=== PATIENT | female | born 1985 | race Caucasian/White ===

== ENCOUNTER 2016-05-03 20:12 | Emergency (ER) | payer MEDICAID ==
[~2016-05-03] VITALS: Ht 162.6 cm; Wt 101.0 kg
[~2016-05-03 20:12] MED LIST: ACYC200C2 PO; CALC600T11 PO; FERR325C PO; PRENAT PO
[2016-05-03 20:36] VITALS: Ht 162.6 cm; Wt 101.0 kg
[2016-05-03] MEDS ORDERED: FAMO-18 PO (21:18)
[2016-05-03] MEDS ORDERED: BEN50 PO (21:18)
[2016-05-03] MEDS ORDERED: PRED50TA PO (21:18)
--- NOTE | 2016-05-03 21:22 | ERD ---
ER Documentation Chief Complaint Date/Time DATE: 05/03/16 TIME: 21:20 Chief Complaint hives all over the body HPI 30-year-old female presents here in emergency department for complaints of rash all over the body and itching started today. Patient cannot remember eating something or different. Patient denies any shortness of breath or wheezing. Patient denies any lip swelling, tongue swelling or stridor. Patient did not take any medications up and symptoms. Patient does not have any family members with the same type of symptoms. ROS All systems reviewed and are negative except as per history of present illness. Medications Home Meds Active Scripts Prednisone* (Prednisone*) 50 Mg Tablet, 50 MG PO DAILY, #5 TAB Prov:MARKO HUGHES ACTING TEACHER 05/03/16 Famotidine* (Pepcid*) 20 Mg Tablet, 20 MG PO BID, #20 TAB Prov:MARKO HUGHES ACTING TEACHER 05/03/16 Diphenhydramine Hcl* (Benadryl*) 50 Mg Cap, 50 MG PO Q6H Y for ITCHING/RASH, # 30 CAP Prov:MARKO HUGHES ACTING TEACHER 05/03/16 Acyclovir* (Acyclovir*) 200 Mg Capsule, 200 MG PO 5 TIMES DAILY for 7 Days, CAP Prov:NICHOLAS CARMONA PA-C 04/08/16 Reported Medications Calcium Carbonate* (Calcium Carbonate*) 600 MG Ca Tab, 600 MG PO DAILY, TAB 02/11/16 Ferrous Sulfate (Iron) 325 Mg Capsule.er, 325 MG PO DAILY, CAP 02/11/16 Multivit/Min/Fol Ac/Iron/Pren* ( S*) 1 Tab Tab, 1 TAB PO DAILY, TAB 12/20/15 Allergies Allergies: Coded Allergies: No Known Allergy (Unverified , 03/26/16) PMhx/Soc History of Surgery: Yes (Cholecystectomy(2014),(03/20/16)) Anesthesia Reaction: No Hx Neurological Disorder: No Hx Respiratory Disorders: No Hx Cardiac Disorders: No Hx Psychiatric Problems: No Hx Miscellaneous Medical Probl: Yes (Gallstones) Hx Alcohol Use: No Hx Substance Use: No Hx Tobacco Use: No FmHx Family History: No coronary disease, No diabetes, No other Physical Exam Vitals Vital Signs Date Time Temp Pulse Resp B/P Pulse Ox O2 Delivery O2 Flow Rate FiO2 05/03/16 20:36 97.9 95 20 104/67 98 Physical Exam GENERAL: The patient is well developed and appropriate for usual state of health, in no apparent distress. CHEST: Clear to auscultation bilaterally. There are no rales, wheezes or rhonchi. HEART: Regular rate and rhythm. No murmurs, clicks, rubs or gallops. No S3 or S4. ABDOMEN: Soft, nontender and nondistended. Good bowel sounds. No rebound or guarding. No gross peritonitis. No gross organomegaly or masses. No Connolly sign or McBurney point tenderness. BACK: No midline or flank tenderness. EXTREMITIES: Equal pulses bilaterally. There is no peripheral clubbing, cyanosis or edema. No focal swelling or erythema. Full range of motion. Grossly neurovascularly intact. NEURO: Alert and oriented. Cranial nerves 2-12 intact. Motor strength in all 4 extremities with 5/5 strength. Sensation grossly intact. Normal speech and gait. SKIN: Maculopapular rash noted all over the body. There is no apparent ecchymosis or petechia. The skin is warm and dry. HEMATOLOGIC AND LYMPHATIC: There is no evidence of excessive bruising or lymphedema. No gross cervical, axillary, or inguinal lymphadenopathy. Results 24 hrs Current Medications Medications (Trade) Dose Ordered Sig/Hai Route PRN Reason Start Time Stop Time Status Last Admin Dose Admin Diphenhydramine HCl (Benadryl) 50 mg ONCE ONCE IM 05/03/16 21:30 05/03/16 21:31 Methylprednisolone Sodium Succinate (Solu-Medrol) 125 mg ONCE ONCE IM 05/03/16 21:30 05/03/16 21:31 Benadryl and Solu-Medrol was given here in emergency department, verbalized feeling much better, rash improved afterwards. Procedures/MDM Medical decision making: Patient's symptoms most likely consistent with urticaria, allergic reaction, most likely from something patient ate or inhaled. No symptoms of angioedema. No symptoms of anaphylactic shock. No symptoms of stridor. No oral airway restriction noted. No symptoms of any coagulopathies. No symptoms of any sepsis at this time. Patient appears well seemed in a stable. Patient was given for Benadryl, prednisone, Pepcid, patient is advised to follow with primary doctor in 2 days, avoid common allergens, patient was advised to follow with primary care doctor in 2 days, return to emergency department for any worsening symptoms. Departure Diagnosis: Primary Impression: Acute urticaria Condition: Stable Patient Instructions: MARKO Fischer NP May 03, 2016 21:22
[2016-05-03] MEDS ORDERED: METHYLPREDNISOLONE 125 MG INJ IM ONE (21:30)
[2016-05-03] MEDS ORDERED: DIPHENHYDRAMINE 50 MG INJ IM ONE (21:30)
[2016-05-03 21:54] VITALS: BP 108/62; PULSE 88; RESP 16; TEMP 98.3
== END 2016-05-03 21:55 | disposition home or self-care (01) ==
LOC: FTE 20:12
DX: L50.9 Urticaria, unspecified (principal)
CPT/HCPCS: J1200; J2930; 96372

== ENCOUNTER 2016-05-14 13:44 | Emergency (ER) | payer MEDICAID ==
[~2016-05-14] VITALS: Ht 172.7 cm; Wt 104.0 kg
[~2016-05-14 13:44] MED LIST changes: +BEN50 PO; +FAMO-18 PO; +PRED50TA PO
[2016-05-14 13:54] VITALS: Ht 172.7 cm; Wt 104.0 kg
[2016-05-14] MEDS ORDERED: LABE200T25 PO (16:44)
--- NOTE | 2016-05-14 17:56 | ERD ---
ER Documentation Chief Complaint Date/Time DATE: 05/14/16 TIME: 17:54 Chief Complaint pt with 1 month old baby with c/o chest congestion, cough HPI This is a 30-year-old female with no past medical history other than hypertension that presents to the emergency department complaining of a 48 hour history of a nonproductive cough, rhinorrhea, sneezing and generalized myalgias. She also indicates that she has been having a sore throat but denies any dysphagia or odynophagia. She has had no fevers or shaking or chills. She indicates her 1-month-old baby has had similar symptoms. She denies any frequency urgency or dysuria. She denies a headache or neck pain. She has had no rashes. She denies any abdominal pain. She denies any recent travel and no shortness of breath at rest or exertion ROS All systems reviewed and are negative except as per history of present illness. Medications Home Meds Reported Medications Labetalol Hcl* (Labetalol Hcl*) 200 Mg Tablet, 200 MG PO BID, TAB 05/14/16 Discontinued Reported Medications Calcium Carbonate* (Calcium Carbonate*) 600 MG Ca Tab, 600 MG PO DAILY, TAB 02/11/16 Ferrous Sulfate (Iron) 325 Mg Capsule.er, 325 MG PO DAILY, CAP 02/11/16 Multivit/Min/Fol Ac/Iron/Pren* ( S*) 1 Tab Tab, 1 TAB PO DAILY, TAB 12/20/15 Discontinued Scripts Prednisone* (Prednisone*) 50 Mg Tablet, 50 MG PO DAILY, #5 TAB Prov:MARKO HUGHES DIE STORAGE CLERK 05/03/16 Famotidine* (Pepcid*) 20 Mg Tablet, 20 MG PO BID, #20 TAB Prov:MARKO HUGHES DIE STORAGE CLERK 05/03/16 Diphenhydramine Hcl* (Benadryl*) 50 Mg Cap, 50 MG PO Q6H Y for ITCHING/RASH, # 30 CAP Prov:MARKO HUGHES DIE STORAGE CLERK 05/03/16 Acyclovir* (Acyclovir*) 200 Mg Capsule, 200 MG PO 5 TIMES DAILY for 7 Days, CAP Prov:NICHOLAS CARMONA PA-C 04/08/16 Allergies Allergies: Coded Allergies: No Known Allergy (Unverified , 05/14/16) PMhx/Soc History of Surgery: Yes (Cholecystectomy(2015),(03/20/16)) Anesthesia Reaction: No Hx Neurological Disorder: No Hx Respiratory Disorders: No Hx Cardiac Disorders: No Hx Psychiatric Problems: No Hx Miscellaneous Medical Probl: Yes (Gallstones) Hx Alcohol Use: No Hx Substance Use: No Hx Tobacco Use: No Smoking Status: Never smoker Physical Exam Vitals Vital Signs Date Time Temp Pulse Resp B/P Pulse Ox O2 Delivery O2 Flow Rate FiO2 05/14/16 16:08 98.3 74 18 110/62 98 Room Air 05/14/16 13:54 98.3 74 18 110/62 98 Physical Exam Constitutional:Well-developed. Well-nourished. HEENT:Normocephalic. Atraumatic.Pupils were equal round reactive to light. Moist mucous membranes.No tonsillar exudates. Mild erythema of the tonsils with uvula midline. Neck: No nuchal rigidity. No lymphadenopathy. No posterior cervical spine tenderness or step-offs. Respiratory: Not using accessory muscles of respiration.Lungs were clear to auscultation bilaterally. No rhonchi. No rales. No wheezing. Cardiovascular: Regular rate regular rhythm.No murmurs. No rubs were appreciated.S1, S2 normal. Distal pulses are palpable 2+ bilaterally. GI: Abdomen was soft. Nontender. Non Distended. No pulsatile abdominal masses or bruits. No rebound. No guarding. Bowel sounds were present and normal. Muscle skeletal: Full range of motion of both the upper and lower extremities bilaterally.Normal muscle tone.No assymetrical calf tenderness or swelling. Skin: No petechia, no purpura. No lesions on the palms or the soles of the feet. No maculopapular rash. NEURO: Patient was alert, awake, orientated x3.No facial droop. Gait observed and normal with no ataxia.Speech had regular rate and rhythm. No focal neurological deficits. Procedures/MDM This patient presented to the emergency department with flulike symptoms. Her 1 -month-old child had tested positive for influenza A. The patient's influenza swab was negative however given her symptoms and sick contacts she will be sent home with a prescription of Tamiflu. The patient was afebrile nontoxic in appearance and therefore did not feel is necessary to obtain any ancillary laboratory work or radiographic imaging. The patient was discharged home in fair condition. They were instructed to return to the emergency department at any time if there was any worsening of their condition. The patient stated they would follow up with their PCP in the next 24-48 hours to initiate a suitable medication regimen under the care of their PCP as well as to allow their PCP to monitor any drug reactions. The patient was discharged home with prescriptions after they gave informed consent to the new medication. They were also fully informed by myself on the adverse effects and adverse drug interactions in order to provide adequate safeguards to prevent possible adverse reactions to medications. Departure Diagnosis: Primary Impression: Flu-like symptoms Condition: Serious SHOLA ARROYO May 14, 2016 17:56
[2016-05-14] MEDS ORDERED: OSLT75C PO (17:57)
[2016-05-14] MEDS ORDERED: IBUP800T25 PO (17:57)
[2016-05-14 18:34] VITALS: BP 113/69; PULSE 79; RESP 18; TEMP 98.6
== END 2016-05-14 18:36 | disposition home or self-care (01) ==
LOC: E/R 13:44
DX: R05 Cough (principal); J34.89 Other specified disorders of nose and nasal sinuses; R06.7 Sneezing; M79.1 Myalgia; J02.9 Acute pharyngitis, unspecified; I10 Essential (primary) hypertension
CPT/HCPCS: 87400; Z7502; 99283

== ENCOUNTER 2016-05-17 11:00 | Emergency (ER) | payer MEDICAID ==
[~2016-05-17] VITALS: Wt 100.0 kg
[~2016-05-17 11:00] MED LIST changes: -ACYC200C2 PO; -BEN50 PO; -CALC600T11 PO; -FAMO-18 PO; -FERR325C PO; +IBUP800T25 PO; +LABE200T25 PO; +OSLT75C PO; -PRED50TA PO; -PRENAT PO
--- NOTE | 2016-05-17 13:37 | RADRPT ---
PROCEDURE: US Pelvis CLINICAL INDICATION: Vaginal bleeding TECHNIQUE: Multiple sonographic images of the pelvis were obtained utilizing a transabdominal and endovaginal technique. The images were reviewed on a PACS workstation. COMPARISON: No central ultrasound from 03/16/2016 FINDINGS: The uterus measures 9.0 x 5.1 x 6.7 cm. The endometrial echo complex measures 16 mm in thickness. No discrete lesion is seen. The right ovary measures 3.7 x 1.8 x 2.3 cm. The left ovary measures 3.5 x 1.9 x 2.4 cm. There is no rmal vascular flow in both ovaries. No significant ovarian lesions are seen. There is trace pelvic free fluid. IMPRESSION: Prominence of the endometrium is likely due to stage of the menstrual cycle. Correlation with beta H CG level is recommended to evaluate for . No focally increased heterogeneity in the endome trium to suggest retained products of conception. Otherwise, unremarkable pelvic ultrasound. RPTAT: EE Physician Nallely Date Time Electronically viewed and signed by Physician Nallely on 05/17/2016 13:36 /
[2016-05-17 14:34] LABS: BASOPHILS % 0.4 % (0.0-2.0); EOSINOPHILS # 0.1 10^3/ul (0.0-0.5); HEMATOCRIT 35.4 % (37.0-47.0); HEMOGLOBIN 11.5 g/dl (12.0-16.0); LYMPHOCYTES # 1.7 10^3/ul (0.8-2.9); LYMPHOCYTES % 35.3 % (15.0-51.0); MEAN CORPUSCULAR HEMOGLOBIN 25.9 pg (29.0-33.0); MEAN CORPUSCULAR HGB CONC 32.6 g/dl (32.0-37.0); MEAN CORPUSCULAR VOLUME 79.5 fl (82.0-101.0); MEAN PLATELET VOLUME 8.7 fl (7.4-10.4); MONOCYTE # 0.6 10^3/ul (0.3-0.9); MONOCYTES % 11.2 % (0.0-11.0); NEUTROPHIL # 2.5 10^3/ul (1.6-7.5); NEUTROPHILS % 51.1 % (39.0-77.0); PLATELET COUNT 293 10^3/UL (140-440); RED BLOOD COUNT 4.45 10^6/ul (4.20-5.40); RED CELL DISTRIBUTION WIDTH 17.2 % (11.5-14.5); UNCORRECTED WBC 4.9 10^3/ul (4.8-10.8); WHITE BLOOD COUNT 4.9 10^3/ul (4.8-10.8)
[2016-05-17 14:37] LABS: CONDITION 1; LH ANALYZER COMMENTS 1
[2016-05-17] MEDS ORDERED: FER325 PO (14:42)
--- NOTE | 2016-05-17 14:44 | ERD ---
ER Documentation Chief Complaint Date/Time DATE: 05/17/16 TIME: 14:42 Chief Complaint vag bleeding for 2 days. no dysuria . no dizziness. HPI This 22-year-old female presents with vaginal bleeding for last 2 days. She is approximately 5 pads. History is significant for recent approximately 6 weeks ago. She has not had any menstrual bleeding since that time. She stopped breast-feeding approximately 2 weeks ago. Patient denies any pain, fevers, vomiting, urinary complaints. Patient denies as her is out of town. ROS All systems reviewed and are negative except as per history of present illness. Medications Home Meds Active Scripts Ferrous Sulfate* (Ferrous Sulfate*) 325 Mg Tabec, 325 MG PO BID, #60 TAB Prov:GARLAND PRYOR MD 05/17/16 Ibuprofen* (Motrin*) 800 Mg Tab, 800 MG PO Q6H Y for PAIN AND OR ELEVATED TEMP, #30 TAB Prov:SHOLA ARROYO 05/14/16 Oseltamivir Phosphate* (Tamiflu*) 75 Mg Capsule, 75 MG PO BID for 5 Days, CAP Prov:SHOLA ARROYO 05/14/16 Reported Medications Labetalol Hcl* (Labetalol Hcl*) 200 Mg Tablet, 200 MG PO BID, TAB 05/14/16 Discontinued Reported Medications Calcium Carbonate* (Calcium Carbonate*) 600 MG Ca Tab, 600 MG PO DAILY, TAB 02/11/16 Ferrous Sulfate (Iron) 325 Mg Capsule.er, 325 MG PO DAILY, CAP 02/11/16 Multivit/Min/Fol Ac/Iron/Pren* ( S*) 1 Tab Tab, 1 TAB PO DAILY, TAB 12/20/15 Discontinued Scripts Prednisone* (Prednisone*) 50 Mg Tablet, 50 MG PO DAILY, #5 TAB Prov:MARKO HUGHES ASSEMBLY LINE LEADER 05/03/16 Famotidine* (Pepcid*) 20 Mg Tablet, 20 MG PO BID, #20 TAB Prov:MARKO HUGHES ASSEMBLY LINE LEADER 05/03/16 Diphenhydramine Hcl* (Benadryl*) 50 Mg Cap, 50 MG PO Q6H Y for ITCHING/RASH, # 30 CAP Prov:MARKO HUGHES ASSEMBLY LINE LEADER 05/03/16 Acyclovir* (Acyclovir*) 200 Mg Capsule, 200 MG PO 5 TIMES DAILY for 7 Days, CAP Prov:NICHOLAS CARMONA PA-C 04/08/16 Allergies Allergies: Coded Allergies: No Known Allergy (Unverified , 05/14/16) PMhx/Soc History of Surgery: Yes (Cholecystectomy(2014),(03/20/16)) Anesthesia Reaction: No Hx Neurological Disorder: No Hx Respiratory Disorders: No Hx Cardiac Disorders: No Hx Psychiatric Problems: No Hx Miscellaneous Medical Probl: Yes (Gallstones) Hx Alcohol Use: No Hx Substance Use: No Hx Tobacco Use: No Physical Exam Vitals Vital Signs Date Time Temp Pulse Resp B/P Pulse Ox O2 Delivery O2 Flow Rate FiO2 05/17/16 11:04 98.7 93 21 113/78 98 Physical Exam Const: [] Alert, [id number] per Head: Atraumatic Eyes: Normal Conjunctiva ENT: Normal External Ears, Nose and Mouth. Neck: Full range of motion..~ No meningismus. Resp: Clear to auscultation bilaterally Cardio: Regular rate and rhythm, no murmurs Abd: Soft, non tender, non distended. Normal bowel sounds Skin: No petechiae or rashes Back: No midline or flank tenderness Ext: No cyanosis, or edema Neur: Awake and alert Psych: Normal Mood and Affect Result Diagram: 05/17/16 1405 Results 24 hrs Laboratory Tests Test 05/17/16 14:05 Basophils # 0.010^3/ul Basophils % 0.4% Blood Morphology Comment Eosinophils # 0.110^3/ul Eosinophils % 2.0% Hematocrit 35.4% Hemoglobin 11.5g/dl Lymphocytes # 1.710^3/ul Lymphocytes % 35.3% Mean Corpuscular Hemoglobin 25.9pg Mean Corpuscular Hemoglobin Concent 32.6g/dl Mean Corpuscular Volume 79.5fl Mean Platelet Volume 8.7fl Monocytes # 0.610^3/ul Monocytes % 11.2% Neutrophils # 2.510^3/ul Neutrophils % 51.1% Nucleated Red Blood Cells # 0.010^3/ul Nucleated Red Blood Cells % 0.0/100WBC Platelet Count 90867^3/UL Red Blood Count 4.4510^6/ul Red Cell Distribution Width 17.2% White Blood Count 4.910^3/ul Procedures/MDM HCG is negative. Hemoglobin is 11.5. Pelvic ultrasound shows endometrial thickening consistent with active menses. No additional acute findings noted. Patient was stable amatory throughout the ED course. Patient likely has return of menstrual period and cycle post and post breast-feeding. Patient was discharged home with a prescription of iron and further observation. Patient should return for fevers, vomiting, pain, new worsening symptoms with primary doctor this week, otherwise allow a few days for likely normal return of menses to resolve. The patient was stable with no new complaints during the ER course. Clinically, there is no current evidence to suggest meningitis, sepsis, acute abdomen, pneumonia, acute coronary syndrome, pulmonary embolism, or any other emergent condition appearing to require further evaluation or hospitalization. The patient should certainly return for any new or worsening symptoms per the aftercare instructions. They should otherwise follow-up with her primary care doctor for reevaluation this week. Departure Diagnosis: Primary Impression: Vaginal bleeding Condition: Stable Patient Instructions: Dysfunctional Uterine Bleeding Additional Instructions: Exams normal today. Bleeding likely to be temporary. Likely return of menstrual periods and hormones after . Recheck for new or worsening symptoms with primary care doctor. GARLAND PRYOR MD May 17, 2016 14:44
[2016-05-17 14:47] LABS: CREATININE 0.57 mg/dl (0.44-1.00)
[2016-05-17 14:48] LABS: CALCIUM 8.4 mg/dl (8.4-10.2)
== END 2016-05-17 15:04 | disposition home or self-care (01) ==
LOC: FTE 11:00
DX: N93.9 Abnormal uterine and vaginal bleeding, unspecified (principal)
CPT/HCPCS: 76830; 76856; 80048; 85025; Z7502

== ENCOUNTER 2016-08-20 13:38 | Emergency (ER) | payer MEDICAID ==
[~2016-08-20] VITALS: Ht 162.6 cm; Wt 101.5 kg
[~2016-08-20 13:38] MED LIST changes: +FER325 PO
[2016-08-20 13:43] VITALS: Ht 162.6 cm; Wt 101.5 kg
[2016-08-20] MEDS ORDERED: POLY10DR19 LEFT EYE (15:32)
--- NOTE | 2016-08-20 15:48 | ERD ---
ER Documentation Chief Complaint Date/Time DATE: 08/20/16 TIME: 15:40 Chief Complaint lt eye swelling , redness x 2 days HPI This is a 30-year-old female with a history of hypertension who presents to the ED with left eye redness and itching for 2 days. Denies any trauma. Patient also has mucus discharge in left eye during mornings. Denies any pain, fever, blurred vision, headache, rhinorrhea, shortness of breath or cough. Denies any recent sick contacts or foreign travel. Patient did not take any medication for symptom relief. ROS All systems reviewed and are negative except as per history of present illness. Medications Home Meds Active Scripts Polymyxin B Sulfate-TMP* (Polymyxin B-TMP Eye Drops*) 10 Ml Drops, 1 DROP LEFT EYE QID for 7 Days, EA Prov:PIERRE TRUJILLO 08/20/16 Ferrous Sulfate* (Ferrous Sulfate*) 325 Mg Tabec, 325 MG PO BID, #60 TAB Prov:GARLAND PRYOR MD 05/17/16 Ibuprofen* (Motrin*) 800 Mg Tab, 800 MG PO Q6H Y for PAIN AND OR ELEVATED TEMP, #30 TAB Prov:SHOLA ARROYO 05/14/16 Oseltamivir Phosphate* (Tamiflu*) 75 Mg Capsule, 75 MG PO BID for 5 Days, CAP Prov:SHOLA ARROYO 05/14/16 Reported Medications Labetalol Hcl* (Labetalol Hcl*) 200 Mg Tablet, 200 MG PO BID, TAB 05/14/16 Allergies Allergies: Coded Allergies: No Known Allergy (Unverified , 05/14/16) PMhx/Soc History of Surgery: Yes (Cholecystectomy(2014),(03/20/16)) Anesthesia Reaction: No Hx Neurological Disorder: No Hx Respiratory Disorders: No Hx Cardiac Disorders: No Hx Psychiatric Problems: No Hx Miscellaneous Medical Probl: Yes (Gallstones) Hx Alcohol Use: No Hx Substance Use: No Hx Tobacco Use: No Smoking Status: Never smoker Physical Exam Vitals Vital Signs Date Time Temp Pulse Resp B/P Pulse Ox O2 Delivery O2 Flow Rate FiO2 08/20/16 13:43 98.4 90 16 122/69 99 Physical Exam Physical Exam CONST: Well-developed, well-nourished, in no acute distress. Nontoxic in appearance. HEENT: Erythematous sclera of left eye. Extraocular movement intact. No periorbital swelling or tenderness. Normal conjunctiva. TM intact. External ear is normal. Clear oropharnyx without erythema. No uvular deviation. Moist mucous membranes. Supple neck. No meningismus. No submandibular induration. RESP: Clear to auscultation bilaterally. No wheezing. CARDIO: Regular rate and rhythm, no murmurs. ABD: Soft, non tender, non distended. Normal bowel sounds. No McBurney's point tenderness. No guarding or rigidity. No peritoneal signs. SKIN: No petechiae or rashes. BACK: No midline or flank tenderness. EXT: No cyanosis or edema. Distal pulses equal and bilateral. NEURO: Awake and alert, appropriate for age. 5/5 strength in all extremities. Normal speech. Steady gait. Procedures/MDM EMERGENCY DEPARTMENT COURSE/MEDICAL DECISION MAKING This is a 22-year-old female who comes to the emergency room secondary to complaints of left eye irritation and swelling for 2 days without history of trauma. Physical exam shows left erythematous sclera without periorbital swelling. Extraocular movement is intact and there is no visual impairment. Patient also states that she had yellowish mucoid discharge this morning. Patient's history and physical exam is consistent with conjunctivitis. I will discharge patient home with otic antibiotics. My primary diagnosis conjunctivae is conjunctivitis. Secondary diagnosis is eye redness. Differential diagnoses considered but not limited to conjunctivitis, Lyme disease, retinal detachment, glaucoma.. Pt is hemodynamically stable upon reassessment. There are no new complaints during the ED course. The patient was discharged for outpatient management with a prescription for polymyxin otic. Patient was instructed to see an blacksmith assistant and a referral list was given. The patient was advised to followup with their PMD in 1-2 days and to return to the Emergency Department if there are any new or worsening symptoms. The patient understood and agreed with the diagnosis, treatment and plan. Patient is stable for discharge at this time. Departure Diagnosis: Primary Impression: Conjunctivitis Conjunctivitis type: acute Acute conjunctivitis type: unspecified Laterality: left Qualified Code: H10.32 - Acute conjunctivitis of left eye, unspecified acute conjunctivitis type Additional Impression: Redness of eye, left Condition: Stable Patient Instructions: Conjunctivitis, Bacterial Referrals: [facility] Usted se anthony hecho un examen mdico de control que le indica que no est en shania condicin que requiera tratamiento urgente en el Departamento de Emergencia. Un estudio ms profundo y el tratamiento de moses condicin pueden esperar sin ningn riesgo hasta que usted sea atendida/o en el consultorio de moses mdico o shania cl jack. Es responsabilidad suya arreglar shania anton para el seguimiento del carlyn. MANEJO DE CONDICIONES NO URGENTES EN EL FUTURO 1) Si usted tiene un mdico de atencin primaria: Usted debera llamar a moses mdico de atencin primaria antes de venir al departamento de emergencia. Despus de las horas de consultorio, moses doctor o moses asociado/a est disponible por telfono. El mdico o enfermero de gonzález en el servicio telefnico puede asesorarle por raul medio para atender el problema, o carlyn contrario se puede programar shania anton. 2) Si usted no tiene un mdico de atencin primaria: Llame al mdico o clnica de referencia que aparece abajo vladimir las horas de consultorio para hacer shania anton para que le vean. CLINICAS: [facility] [phone] [facility] [phone] [facility] [phone] [address] [facility]. [facility] [phone] [facility]. [place] [id number] [phone] [facility]. [phone] [address] [facility] Hours: Mon - Fri 9:00 AM - 5:00 PM Additional Instructions: seguimiento con un oftalmlogo. Llame a moses mdico de atencin primaria maana para hacer shania anton vladimir los pr ximos phelps 1-2. Volver al Departamento de la emergencia inmediatamente si tiene cualquier s ntoma nuevo o que empeora. Watkins todos los medicamentos sharmaine lo indique. PIERRE TRUJILLO August 20, 2016 15:48
== END 2016-08-20 15:44 | disposition home or self-care (01) ==
LOC: FTE 13:38
DX: H10.32 Unspecified acute conjunctivitis, left eye (principal); H57.8 Other specified disorders of eye and adnexa
CPT/HCPCS: 99283

== ENCOUNTER 2016-11-24 21:44 | Emergency (ER) | payer MEDICAID ==
[~2016-11-24] VITALS: Ht 162.6 cm; Wt 100.5 kg
[~2016-11-24 21:44] MED LIST changes: +ACET500C5 PO; +ACYC200C2 PO; +BEN50 PO; +CALC600T11 PO; +FAMO-96 PO; +FERR325C PO; +NITR-58 PO; +ONDA4TAB35 PO; +POLY10DR19 LEFT EYE; +POLY10DR19 RIGHT EYE; +PRED50TA PO; +PRENAT PO
[2016-11-24 21:47] VITALS: Ht 162.6 cm; Wt 100.5 kg
[2016-11-24] MEDS ORDERED: LIDOCAINE/MYLANTA 40 ML BTL PO STA (22:41)
[2016-11-24] MEDS ORDERED: FAMOTIDINE 20 MG TAB PO STA (22:41)
--- NOTE | 2016-11-24 23:42 | RADRPT ---
PROCEDURE: Ultrasound right upper quadrant CLINICAL INDICATION: Abdominal pain. TECHNIQUE: Raymond scale and color Doppler imaging of the right upper quadrant of the abdomen was perf ormed. COMPARISON: Ultrasound dated 08/07/2014. FINDINGS: Pancreas: Visualized portions are unremarkable. Liver: Diffuse increased echogenicity, consistent with fatty infiltration. Enlarged measuring 20.1 cm in length. No focal hepatic lesion. Hepatopedal flow in the main portal vein. Gallbladder: Surgically absent. Common bile duct: 2.5 mm in diameter. Right Kidney: 11 cm in length.Normal echogenicity. There is a questionable 6 mm nonobstructing stone at the midportion. No hydronephrosis or renal mass. IMPRESSION: 1. Hepatomegaly and hepatic steatosis. 2. Questionable 6 mm nonobstructing stone at the midportion of the right kidney. No hydronephrosis . RPTAT: HLBP .Brett Lopez MD, Date Time Electronically viewed and signed by .Brett Lopez MD, on 11/24/2016 23:41 .P/
[2016-11-25 00:02] LABS: BASOPHIL # 0.1 10^3/ul (0.0-0.1); BASOPHILS % 0.6 % (0.0-2.0); EOSINOPHILS # 0.1 10^3/ul (0.0-0.5); EOSINOPHILS % 1.4 % (0.0-7.0); HEMATOCRIT 35.3 % (37.0-47.0); HEMOGLOBIN 10.5 g/dl (12.0-16.0); LYMPHOCYTES # 3.3 10^3/ul (0.8-2.9); LYMPHOCYTES % 35.3 % (15.0-51.0); MEAN CORPUSCULAR HEMOGLOBIN 22.8 pg (29.0-33.0); MEAN CORPUSCULAR HGB CONC 29.7 g/dl (32.0-37.0); MEAN CORPUSCULAR VOLUME 76.7 fl (82.0-101.0); MEAN PLATELET VOLUME 10.8 fl (7.4-10.4); MONOCYTE # 0.6 10^3/ul (0.3-0.9); MONOCYTES % 6.6 % (0.0-11.0); NEUTROPHILS % 55.9 % (39.0-77.0); PLATELET COUNT 399 10^3/UL (140-415); WHITE BLOOD COUNT 9.3 10^3/ul (4.8-10.8)
--- NOTE | 2016-11-25 00:28 | RADRPT ---
PROCEDURE: XR Chest. CLINICAL INDICATION: Abdominal pain TECHNIQUE: Single frontal view of the chest was obtained COMPARISON: 03/26/2016 FINDINGS: The heart and mediastinum are within normal limits. Hypoinflation lungs and minimal bibasilar atelectasis. There may be a very small left pleural effusion. IMPRESSION: Hypoinflation of the lungs and minimal bibasilar atelectasis. Possible very small left pleural effus ion. RPTAT: HJES .Hugo Swain MD, MD Date Time Electronically viewed and signed by .Hugo Swain MD, MD on 11/25/2016 00:27 .S/
[2016-11-25 00:30] LABS: ALBUMIN 4.1 g/dl (3.3-4.9); ALBUMIN/GLOBULIN RATIO 1.05; CALCIUM 9.4 mg/dl (8.4-10.2); CREATININE 0.69 mg/dl (0.44-1.00); POTASSIUM 3.9 mmol/L (3.5-5.1)
[2016-11-25 00:34] LABS: URINE BLOOD (Dip) POC Trace-lysed (NEGATIVE)
[2016-11-25] MEDS ORDERED: FAMO-96 PO (01:26)
[2016-11-25] MEDS ORDERED: HYDR-906 PO (01:27)
--- NOTE | 2016-11-25 01:51 | ERD ---
ER Documentation Chief Complaint Date/Time DATE: 11/25/16 TIME: 01:42 Chief Complaint mid abd pain radaiting to back x 2 weeks HPI This is a 31-year-old female presenting to emergency department for mid epigastric pain radiating to mid back 2 weeks. Patient states pain is mild to moderate in believe she feels a "ball" in the center epigastric region. Patient states she has had a history of cholecystectomy. Denies vomiting or diarrhea. No chest pain, shortness breath or difficulty breathing. No labored breathing, cough, sore throat or difficulty swallowing. No fevers or chills. No recent travel outside the country. No ingestion of raw or undercooked meat. No aggravating or relieving factors. ROS All systems reviewed and are negative except as per history of present illness. Medications Home Meds Active Scripts Hydrocodone/Acetaminophen (Norman 5-325 Tablet) 1 Each Tablet, 1 TAB PO Q6H Y for PAIN, #7 TAB Prov:SHAILA CHEN NP 11/25/16 Famotidine* (Pepcid*) 20 Mg Tablet, 20 MG PO BID for 4 Days, TAB Prov:SHAILA CHEN NP 11/25/16 Polymyxin B Sulfate-TMP* (Polymyxin B-TMP Eye Drops*) 10 Ml Drops, 1 DROP LEFT EYE QID for 7 Days, EA Prov:PIERRE TRUJILLO 08/20/16 Ferrous Sulfate* (Ferrous Sulfate*) 325 Mg Tabec, 325 MG PO BID, #60 TAB Prov:GARLAND PRYOR MD 05/17/16 Ibuprofen* (Motrin*) 800 Mg Tab, 800 MG PO Q6H Y for PAIN AND OR ELEVATED TEMP, #30 TAB Prov:SHOLA ARROYO 05/14/16 Oseltamivir Phosphate* (Tamiflu*) 75 Mg Capsule, 75 MG PO BID for 5 Days, CAP Prov:SHOLA ARROYO 05/14/16 Reported Medications Labetalol Hcl* (Labetalol Hcl*) 200 Mg Tablet, 200 MG PO BID, TAB 05/14/16 Allergies Allergies: Coded Allergies: No Known Allergy (Unverified , 05/14/16) PMhx/Soc History of Surgery: Yes (Cholecystectomy(2014),(03/20/16)) Anesthesia Reaction: No Hx Neurological Disorder: No Hx Respiratory Disorders: No Hx Cardiac Disorders: No Hx Psychiatric Problems: No Hx Miscellaneous Medical Probl: Yes (Gallstones, ANEMIA) Hx Alcohol Use: No Hx Substance Use: No Hx Tobacco Use: No Smoking Status: Never smoker Physical Exam Vitals Vital Signs Date Time Temp Pulse Resp B/P Pulse Ox O2 Delivery O2 Flow Rate FiO2 11/24/16 21:47 98.6 98 20 138/79 96 Physical Exam Const: Alert, no acute distress, [id number] Head: Atraumatic Eyes: Normal Conjunctiva ENT: Normal External Ears, Nose and Mouth. Neck: Full range of motion..~ No meningismus. Resp: Clear to auscultation bilaterally Cardio: Regular rate and rhythm, no murmurs Abd: Soft, non tender, non distended. Normal bowel sounds Skin: No petechiae or rashes Back: No midline or flank tenderness Ext: No cyanosis, or edema Neur: Awake and alert Psych: Normal Mood and Affect Result Diagram: 11/24/16 2337 11/24/16 2337 Results 24 hrs Laboratory Tests Test 11/24/16 23:37 11/25/16 00:39 White Blood Count 9.310^3/ul Red Blood Count 4.6010^6/ul Hemoglobin 10.5g/dl Hematocrit 35.3% Mean Corpuscular Volume 76.7fl Mean Corpuscular Hemoglobin 22.8pg Mean Corpuscular Hemoglobin Concent 29.7g/dl Red Cell Distribution Width 18.0% Platelet Count 52362^3/UL Mean Platelet Volume 10.8fl Neutrophils % 55.9% Lymphocytes % 35.3% Monocytes % 6.6% Eosinophils % 1.4% Basophils % 0.6% Nucleated Red Blood Cells % 0.0/100WBC Neutrophils # (Manual) 510^3/ul Lymphocytes # 3.310^3/ul Monocytes # 0.610^3/ul Eosinophils # 0.110^3/ul Basophils # 0.110^3/ul Nucleated Red Blood Cells # 0.010^3/ul Sodium Level 146mmol/L Potassium Level 3.9mmol/L Chloride Level 102mmol/L Carbon Dioxide Level 28mmol/L Anion Gap 20 Blood Urea Nitrogen 12mg/dl Creatinine 0.69mg/dl Glucose Level 97mg/dl Calcium Level 9.4mg/dl Total Bilirubin 0.0mg/dl Direct Bilirubin 0.00mg/dl Indirect Bilirubin 0.0mg/dl Aspartate Amino Transf (AST/SGOT) 23IU/L Alanine Aminotransferase (ALT/SGPT) 38IU/L Alkaline Phosphatase 147IU/L Total Protein 8.0g/dl Albumin 4.1g/dl Globulin 3.90g/dl Albumin/Globulin Ratio 1.05 Lipase 95U/L Bedside Urine pH (LAB) 5.5 Bedside Urine Protein (LAB) Trace Bedside Urine Glucose (UA) Negative Bedside Urine Ketones (LAB) Negative Bedside Urine Blood Trace-lysed Bedside Urine Nitrite (LAB) Negative Bedside Urine Leukocyte Esterase (L Negative Current Medications Medications (Trade) Dose Ordered Sig/Hai Route PRN Reason Start Time Stop Time Status Last Admin Dose Admin Famotidine (Pepcid) 20 mg ONCE STAT PO 11/24/16 22:41 11/24/16 22:45 DC 11/25/16 00:25 Miscellaneous Medication (Gi Cocktail (2)) 40 ml ONCE STAT PO 11/24/16 22:41 11/24/16 22:45 DC 11/25/16 00:25 Procedures/MDM [place] [address] Radiology Main Line: [phone] DIAGNOSTIC IMAGING REPORT Patient: HARI BRASWELL : 1985 Age: 31 Sex: F MR #: [id number] DOS: 11/24/16 2241 Ordering MD: SHAILA CHEN NP Location: [facility] Room/Bed: PROCEDURE: XR Chest. CLINICAL INDICATION: Abdominal pain TECHNIQUE: Single frontal view of the chest was obtained COMPARISON: 03/26/2016 FINDINGS: The heart and mediastinum are within normal limits. Hypoinflation lungs and minimal bibasilar atelectasis. There may be a very small left pleural effusion. IMPRESSION: Hypoinflation of the lungs and minimal bibasilar atelectasis. Possible very small left pleural effusion. [place] [address] Radiology Main Line: [phone] DIAGNOSTIC IMAGING REPORT Patient: HARI BRASWELL : 1985 Age: 31 Sex: F MR #: [id number] DOS: 11/24/16 2241 Ordering MD: SHAILA CHEN NP Location: [facility] Room/Bed: PROCEDURE: Ultrasound right upper quadrant CLINICAL INDICATION: Abdominal pain. TECHNIQUE: Raymond scale and color Doppler imaging of the right upper quadrant of the abdomen was performed. COMPARISON: Ultrasound dated 08/07/2014. FINDINGS: Pancreas: Visualized portions are unremarkable. Liver: Diffuse increased echogenicity, consistent with fatty infiltration. Enlarged measuring 20.1 cm in length. No focal hepatic lesion. Hepatopedal flow in the main portal vein. Gallbladder: Surgically absent. Common bile duct: 2.5 mm in diameter. Right Kidney: 11 cm in length.Normal echogenicity. There is a questionable 6 mm nonobstructing stone at the midportion. No hydronephrosis or renal mass. IMPRESSION: 1. Hepatomegaly and hepatic steatosis. 2. Questionable 6 mm nonobstructing stone at the midportion of the right kidney. No hydronephrosis. MDM: 31-year-old female presents emergency department with mid epigastric pain that radiates to back 2 weeks. No fevers or chills. Vital signs are stable. No chest pain, shortness breath or difficulty breathing. No aggravating or relieving factors. No vomiting or diarrhea. CBC, CMP and lipase show no significant anemia, electrolyte imbalance. Lipase is normal at 95. Chest x- ray reviewed by radiologist as hypoinflation of the lungs and minimal bibasilar atelectasis. Possible very small left pleural effusion. Ultrasound right upper quadrant reviewed by radiologist as high hepatomegaly and hepatic steatosis. Questionable 6 mL meter nonobstructing stone at the midportion of the right kidney. No hydronephrosis. AST and ALT are normal. Creatinine is normal. Patient given Pepcid, GI cocktail while in the ED. Patient states pain has improved somewhat. Urine shows trace blood and protein otherwise negative for infection. Discussed findings with Dr. Delgado and we agree that patient is appropriate for outpatient management. Patient is stable and alert throughout ED visit. No active vomiting. Pain is tolerable. Diagnosis is epigastric pain secondary to hepatomegaly and hepatic steatosis and nephrolithiasis. Low suspicion for obstructive uropathy or choledocholithiasis. Patient is appropriate for outpatient management and will be given prescription for Pepcid and Norman 5/325 mg #7. Instructed patient to follow-up with primary care provider in the next 2-3 days for reassessment. Patient given resources with discharge paperwork. Return to ED for any high fever, chest pain, difficulty breathing, shortness breath, wheezing, vomiting, diarrhea, abdominal pain or any new or worsening symptoms. Patient verbalizes understanding. All questions answered at discharge. Departure Diagnosis: Primary Impression: Epigastric pain Additional Impression: Nephrolithiasis Condition: Stable Patient Instructions: Gerd (Adult), Epigastric Pain (Uncertain Cause) [facility] Usted se anthony hecho un examen mdico de control que le indica que no est en shania condicin que requiera tratamiento urgente en el Departamento de Emergencia. Un estudio ms profundo y el tratamiento de moses condicin pueden esperar sin ningn riesgo hasta que usted sea atendida/o en el consultorio de moses mdico o shania cl jack. Es responsabilidad suya arreglar shania sumit para el seguimiento del carlyn. MANEJO DE CONDICIONES NO URGENTES EN EL FUTURO 1) Si usted tiene un mdico de atencin primaria: Usted debera llamar a moses mdico de atencin primaria antes de venir al departamento de emergencia. Despus de las horas de consultorio, moses doctor o moses asociado/a est disponible por telfono. El mdico o enfermero de gonzález en el servicio telefnico puede asesorarle por raul medio para atender el problema, o carlyn contrario se puede programar shania sumit. 2) Si usted no tiene un mdico de atencin primaria: Llame al mdico o clnica de referencia que aparece abajo vladimir las horas de consultorio para hacer shania sumit para que le vean. CLINICAS: [facility] [phone] [address] [facility] [phone] [address] [facility] [phone] [address] [facility] [phone] [facility]. [facility] 119 [phone] [address] [facility]. [phone] [address] [facility]. [facility] () Usted se anthony hecho un examen mdico de control que le indica que no est en shania condicin que requiera tratamiento urgente en el Departamento de Emergencia. Un estudio ms profundo y el tratamiento de moses condicin pueden esperar sin ningn riesgo hasta que usted sea atendida/o en el consultorio de moses mdico o shania cl jack. Es responsabilidad suya arreglar shania sumit para el seguimiento del carlyn. MANEJO DE CONDICIONES NO URGENTES EN EL FUTURO 1) Si usted tiene un mdico de atencin primaria: Usted debera llamar a moses mdico de atencin primaria antes de venir al departamento de emergencia. Despus de las horas de consultorio, moses doctor o moses asociado/a est disponible por telfono. El mdico o enfermero de gonzález en el servicio telefnico puede asesorarle por raul medio para atender el problema, o carlyn contrario se puede programar shania sumit. 2) Si usted no tiene un mdico de atencin primaria: Llame al mdico o condado institucions de referencia que aparece abajo vladimir las horas de consultorio para hacer shania sumit para que le vean. SI USTED NO PUEDE PAGAR PARA JIA UN MEDICO puede ir a: [facility] [address] [place] [address] [facility] [address] [place] [address] [facility] [address] [place] [address] [facility] [address] [place] [address] Additional Instructions: Llame al doctor MAANA y marcelo shania SUMIT PARA DENTRO DE 2-3 HINSON.Dgale a la secretaria que nosotros le instruimos hacer esta sumit.Avise o llame si moses condicin se empeora antes de la sumit. Regresa aqui si peor o no mejor. Regresar a ED por fiebre law, dolor en el pecho, dificultad para respirar, respiracin entrecortada, sibilancias, vmitos, diarrea, dolor abdominal o cualquier sntoma nuevo o que empeora. SHAILA CHEN NP Nov 25, 2016 01:51
== END 2016-11-25 01:48 | disposition home or self-care (01) ==
LOC: FTE 21:44
DX: R10.13 Epigastric pain (principal); N20.0 Calculus of kidney
CPT/HCPCS: 71010; 76705; 80053; 81003; 83690; 85025; Z7502; Z7610

== ENCOUNTER 2017-05-25 23:58 | Emergency (ER) | END 2017-05-26 03:13 | disposition left against medical advice (07) ==

== ENCOUNTER 2017-07-18 11:42 | Emergency (ER) | END 2017-07-18 18:41 | disposition home or self-care (01) ==

== ENCOUNTER 2017-09-21 21:00 | Emergency (ER) | END 2017-09-22 01:43 | disposition home or self-care (01) ==